=== PATIENT | female | born 1990 | race Caucasian/White ===

== ENCOUNTER 2016-04-28 16:06 | Emergency (ER) | payer MEDICAID ==
[~2016-04-28] VITALS: Wt 65.0 kg
[2016-04-28 17:16] LABS: URINE BLOOD (Dip) POC Trace-lysed (NEGATIVE)
[2016-04-28] MEDS ORDERED: ACETAMINOPHEN 325 MG TAB PO ONE (17:30)
--- NOTE | 2016-04-28 18:26 | RADRPT ---
PROCEDURE: US Pelvis CLINICAL INDICATION: Left-sided pelvic pain TECHNIQUE: Multiple sonographic images of the pelvis were obtained utilizing a transabdominal and endovaginal technique. The images were reviewed on a PACS workstation. COMPARISON: None. LMP: 04/13/2016 FINDINGS: The uterus measures 8.2 x 5.8 x 5.1 cm. The endometrial echo complex measures 7 mm in thickness. No discrete lesion is seen. The right ovary measures 2.2 x 1.5 x 1.9 cm. The left ovary measures 2.8 x 1.2 x 1.8 cm. There is no rmal vascular flow in both ovaries. No significant ovarian lesions are seen. There is trace pelvic free fluid. IMPRESSION: Unremarkable pelvic ultrasound, as above. RPTAT: EE Physician Umesh Date Time Electronically viewed and signed by Physician Umesh on 04/28/2016 18:26 /
[2016-04-28] MEDS ORDERED: IBUP400T22 PO (18:31)
[2016-04-28] MEDS ORDERED: TRAM50TA2 PO (18:31)
--- NOTE | 2016-04-28 18:33 | ERD ---
ER Documentation Chief Complaint Date/Time DATE: 04/28/16 TIME: 18:31 Chief Complaint LOWER BACK PAIN X 3 DAYS HPI This 26-year-old female complains of low back pain for last 3 days. She denies any history of trauma or inciting event such as lifting. The pain radiates slightly to the left lower abdomen. She denies dysuria or hematuria. She denies fevers, vomiting, weakness or bowel or bladder incontinence. ROS All systems reviewed and are negative except as per history of present illness. Medications Home Meds Active Scripts Ibuprofen* (Motrin*) 400 Mg Tab, 400 MG PO Q6, #20 TAB Prov:PARI VALDEZ MD 04/28/16 Tramadol HCl (Tramadol HCl) 50 Mg Tablet, 50 MG PO Q4 Y for PAIN, #15 TAB Prov:PARI VALDEZ MD 04/28/16 Allergies Allergies: Coded Allergies: No Known Allergy (Verified Allergy, Mild, 08/09/09) PMhx/Soc Medical and Surgical Hx: pt denies Medical Hx, pt denies Surgical Hx History of Surgery: No Anesthesia Reaction: No Hx Neurological Disorder: No Hx Respiratory Disorders: No Hx Cardiac Disorders: No Hx Psychiatric Problems: No Hx Miscellaneous Medical Probl: No Hx Alcohol Use: No Hx Substance Use: No Hx Tobacco Use: No Smoking Status: Never smoker Physical Exam Vitals Vital Signs Date Time Temp Pulse Resp B/P Pulse Ox O2 Delivery O2 Flow Rate FiO2 04/28/16 16:14 98.0 85 18 123/63 99 Physical Exam Const: [] Alert, [id number]. Head: Atraumatic Eyes: Normal Conjunctiva ENT: Normal External Ears, Nose and Mouth. Neck: Full range of motion..~ No meningismus. Resp: Clear to auscultation bilaterally Cardio: Regular rate and rhythm, no murmurs Abd: Soft, non tender, non distended. Normal bowel sounds. Mild tenderness in left lower pelvic area. No rebound. No tenderness at McBurney's point no Rivera sign. Skin: No petechiae or rashes Back: No midline or flank tenderness. Tenderness in the left L4-5 paraspinous muscles. Ext: No cyanosis, or edema Neur: Awake and alert Psych: Normal Mood and Affect Results 24 hrs Laboratory Tests Test 04/28/16 17:20 Bedside Urine Blood Trace-lysed Bedside Urine Glucose (UA) Negative Bedside Urine Ketones (LAB) Trace Bedside Urine Leukocyte Esterase (L Negative Bedside Urine Nitrite (LAB) Negative Bedside Urine Protein (LAB) Negative Bedside Urine pH (LAB) 7.0 Current Medications Medications (Trade) Dose Ordered Sig/[place] Route PRN Reason Start Time Stop Time Status Last Admin Dose Admin Acetaminophen (Tylenol Tab) 650 mg ONCE ONCE PO 04/28/16 17:30 04/28/16 17:31 DC 04/28/16 17:31 Procedures/MDM HCG is negative. Urine shows trace hemoglobin without leukocytes, nitrites or glucose. Pelvic ultrasound is normal. Patient has low back pain radiating to left pelvis of uncertain etiology. Urine was sent for gonorrhea chlamydia. She will treated with ibuprofen and tramadol and further observation at home. Signs or symptoms not consistent with diverticulitis, pyelonephritis, appendicitis, acute abdomen, fracture, dislocation, epidural abscess or neurologic deficit. Patient is advised to recheck for new or worsening symptoms with primary care doctor this week Departure Diagnosis: Primary Impression: Pelvic pain Additional Impression: Back pain Back pain location: low back pain Chronicity: acute Back pain laterality: left Sciatica presence: without sciatica Qualified Code: M54.5 - Acute left- sided low back pain without sciatica Condition: Stable Patient Instructions: Back Pain (Acute Or Chronic) Additional Instructions: Examines normal hoy. posiblemente musculo. Cheque otro vez con herrera doctor primario en el proximo heller or regresa para mas o nueva simptomas. PARI VALDEZ MD Apr 28, 2016 18:33
[2016-04-28 19:08] VITALS: BP 120/61; PULSE 74; RESP 18; TEMP 98.2
== END 2016-04-28 19:05 | disposition home or self-care (01) ==
LOC: FTE 16:06
DX: R10.2 Pelvic and perineal pain (principal)
CPT/HCPCS: 76830; 76856; 81003; 87591; Z7502; Z7610

== ENCOUNTER 2017-01-08 16:01 | Emergency (ER) | payer MEDICAID ==
[~2017-01-08] VITALS: Ht 157.5 cm; Wt 87.3 kg
[~2017-01-08 16:01] MED LIST: IBUP400T22 PO; TRAM50TA2 PO
[2017-01-08 16:04] VITALS: Ht 157.5 cm; Wt 87.3 kg
[2017-01-08] MEDS ORDERED: HYDR26CR PR (16:54)
[2017-01-08] MEDS ORDERED: PHEN1SUP80 PR (16:54)
--- NOTE | 2017-01-08 17:03 | ERD ---
ER Documentation Chief Complaint Chief Complaint Complains of blood in the stools Denies hemrrhoids HPI 26-year-old female complaining of bright red blood during bowel movement 3 days. Patient stated that she has regular daily bowel movement with soft stool. Denies rectal pain. Denies fever or chills. Denies history of hemorrhoids. Denies anal sex. ROS All systems reviewed and are negative except as per history of present illness. Medications Home Meds Active Scripts Phenylephrine HCl/[place] Butter* (Preparation H* Suppository) 1 Each Supp.rect, 1 EACH PA BID Y for PAIN, #10 SUPP.RECT Prov:JASSI CORTES NP 01/08/17 Hydrocortisone* Rectal (Preparation H* Cream) 1% - 26 Gm Cream.gm., 1 APPLIC PA TID Y for PAIN, #1 TUB Prov:JASSI CORTES NP 01/08/17 Ibuprofen* (Motrin*) 400 Mg Tab, 400 MG PO Q6, #20 TAB Prov:PARI VALDEZ MD 04/28/16 Tramadol HCl (Tramadol HCl) 50 Mg Tablet, 50 MG PO Q4 Y for PAIN, #15 TAB Prov:PARI VALDEZ MD 04/28/16 Allergies Allergies: Coded Allergies: No Known Allergy (Verified Allergy, Mild, 08/09/09) PMhx/Soc History of Surgery: No Anesthesia Reaction: No Hx Neurological Disorder: No Hx Respiratory Disorders: No Hx Cardiac Disorders: No Hx Psychiatric Problems: No Hx Miscellaneous Medical Probl: No Hx Alcohol Use: No Hx Substance Use: No Hx Tobacco Use: No Physical Exam Vitals Vital Signs Date Time Temp Pulse Resp B/P Pulse Ox O2 Delivery O2 Flow Rate FiO2 01/08/17 16:04 98.4 84 20 112/71 99 Physical Exam General: Well-developed, well-nourished, conscious and coherent, in no distress Skin: Warm and dry without rash, good texture and turgor Head: Normocephalic without evidence of trauma Eyes: Sclera and conjunctivae normal; pupils equal, round, and reactive to light; extraocular movements are intact Chest: Normal AP diameter. Good expansion without retractions. Nontender. Lungs are clear to auscultate bilaterally with good tidal volume Heart: Regular rate and rhythm. No murmur, rub, or gallops heard Abdomen: Soft and nontender without masses, guarding, or rebound. Bowel sounds are active. No hepatosplenomegaly Rectal: Normal tone. Anal fissure noted in the posterior aspect of the rectal wall. No rectal wall tenderness or mass. Stool is brown and heme- negative Extremities: Full range of motion. Good strength bilaterally. No clubbing, cyanosis, or edema. Peripheral pulses are intact. Sensation intact Neuro: Alert and oriented 4, GCS 15. Cranial nerves grossly intact. Motor and sensory exams nonfocal. Moves all extremities. Speech clear. Gait normal Procedures/MDM Well-appearing 26-year-old female presented to ED with clot during bowel movement. Patient's history exam findings are consistent with anal fissure. Low suspicion for upper or lower GI bleed. No signs of hemorrhoids. Patient appears well, stable for discharge and outpatient management. Medical decision making shared with patient and family. Education provided to patient and family. Patient and family expressed understanding of the plan. Medications on discharge: Preparation H cream and suppository.. Follow-up: Primary care provider in 2-3 days or return to ED if worse. Disclaimer: Inadvertent spelling and grammatical errors are likely due to EHR/ dictation software use and do not reflect on the overall quality of patient care. Also, please note that the electronic time recorded on this note does not necessarily reflect the actual time of the patient encounter. Departure Diagnosis: Primary Impression: Anal fissure Condition: Stable Patient Instructions: Anal Fissure (Child) Referrals: [facility] YOU HAVE RECEIVED A MEDICAL SCREENING EXAM AND THE RESULTS INDICATE THAT YOU DO NOT HAVE A CONDITION THAT REQUIRES URGENT TREATMENT IN THE EMERGENCY DEPARTMENT. FURTHER EVALUATION AND TREATMENT OF YOUR CONDITION CAN WAIT UNTIL YOU ARE SEEN IN YOUR DOCTORS OFFICE WITHIN THE NEXT 1-2 DAYS. IT IS YOUR RESPONSIBILITY TO MAKE AN APPOINTMENT FOR FOLOW-UP CARE. IF YOU HAVE A PRIMARY DOCTOR --you should call your primary doctor and schedule an appointment IF YOU DO NOT HAVE A PRIMARY DOCTOR YOU CAN CALL OUR PHYSICIAN REFERRAL HOTLINE AT IF YOU CAN NOT AFFORD TO SEE A PHYSICIAN YOU CAN CHOSE FROM THE FOLLOWING [facility] [address] [facility] [address] [facility] [facility] [address] [facility]. [facility] [address] [facility]. [facility] [address] [facility]. [facility] [address] Additional Instructions: Call your primary care doctor TOMORROW for an appointment during the next 1 WEEK.Tell the executive secretary that you were referred from this facility.See the doctor sooner or return here if your condition worsens before your appointment time. JASSI CORTES NP Jan 08, 2017 17:03
== END 2017-01-08 17:11 | disposition home or self-care (01) ==
LOC: FTE 16:01
DX: K60.2 Anal fissure, unspecified (principal)
CPT/HCPCS: 99284